=== PATIENT | male | born 1955 | race Caucasian/White ===

== ENCOUNTER → 2017-06-02 | Outpatient (CLI) | payer OTHER ==
[~2017-06-02] MED LIST: ASPI81EC PO; ATEN25 PO; TELM80 PO; VERA180ERB PO
[2017-06-03 14:39] LABS: Stool Occult Bld Immuno 1 Negative (NEGATIVE); Stool Occult Bld Immuno 2 Negative (NEGATIVE)
== END | disposition home or self-care (01) ==
LOC: OLS 07:00 → LAB SHORT 07:00
PROVIDERS: Internal Medicine
DX: Z12.5 Encounter for screening for malignant neoplasm of prostate (principal); Z12.11 Encounter for screening for malignant neoplasm of colon; E55.9 Vitamin D deficiency, unspecified; R73.9 Hyperglycemia, unspecified; I10 Essential (primary) hypertension
CPT/HCPCS: G0328

== ENCOUNTER → 2018-08-16 | Outpatient (CLI) | payer BC ==
[2018-08-17 13:22] LABS: Stool Occult Bld Immuno 1 Negative (NEGATIVE); Stool Occult Bld Immuno 2 Negative (NEGATIVE)
== END | disposition home or self-care (01) ==
LOC: LAB 07:00 → LAB SHORT 07:00
PROVIDERS: Internal Medicine
DX: Z12.5 Encounter for screening for malignant neoplasm of prostate (principal); Z12.11 Encounter for screening for malignant neoplasm of colon; E78.5 Hyperlipidemia, unspecified; E55.9 Vitamin D deficiency, unspecified; I10 Essential (primary) hypertension; Z79.899 Other long term (current) drug therapy
CPT/HCPCS: G0328

== ENCOUNTER → 2021-06-16 | Outpatient (CLI) | payer MEDICARE, BC ==
[2021-06-19 09:26] LABS: Stool Occult Bld Immuno 1 Negative (NEGATIVE); Stool Occult Bld Immuno 2 Negative (NEGATIVE)
== END | disposition home or self-care (01) ==
LOC: LAB SHORT 14:40 → LAB FUT 05-10 16:00
PROVIDERS: Internal Medicine
DX: Z12.11 Encounter for screening for malignant neoplasm of colon (principal)
CPT/HCPCS: G0328

== ENCOUNTER → 2021-12-03 | Outpatient (CLI) | payer MEDICARE, BC | END | disposition home or self-care (01) | LOC: LAB SHORT 08:44 | PROVIDERS: Internal Medicine | DX: D35.02 Benign neoplasm of left adrenal gland (principal) | CPT/HCPCS: 81050 ==

== ENCOUNTER → 2021-12-31 | Outpatient (CLI) | payer MEDICARE, BC | END | disposition home or self-care (01) | LOC: LAB SHORT 07:13 → LAB 07:13 | DX: D35.02 Benign neoplasm of left adrenal gland (principal) | CPT/HCPCS: 81050 ==

== ENCOUNTER → 2022-07-09 | Outpatient (CLI) | payer MEDICARE, BC ==
[2022-07-09 12:17] LABS: Stool Occult Bld Immuno 1 Negative (NEGATIVE); Stool Occult Bld Immuno 2 Negative (NEGATIVE)
== END | disposition home or self-care (01) ==
LOC: LAB SHORT 07:40
PROVIDERS: Internal Medicine
DX: Z12.11 Encounter for screening for malignant neoplasm of colon (principal); E11.9 Type 2 diabetes mellitus without complications; E78.5 Hyperlipidemia, unspecified; I10 Essential (primary) hypertension; Z79.899 Other long term (current) drug therapy
CPT/HCPCS: G0328

== ENCOUNTER → 2023-08-06 | Outpatient (CLI) | payer MEDICARE, BC ==
[2023-08-06 11:51] LABS: Stool Occult Bld Immuno 1 Negative (NEGATIVE); Stool Occult Bld Immuno 2 Negative (NEGATIVE)
== END | disposition home or self-care (01) ==
LOC: LAB 08:19 → LAB SHORT 08:19
PROVIDERS: Internal Medicine
DX: Z12.11 Encounter for screening for malignant neoplasm of colon (principal); E11.8 Type 2 diabetes mellitus with unspecified complications; E78.5 Hyperlipidemia, unspecified; I10 Essential (primary) hypertension; R97.20 Elevated prostate specific antigen [PSA]; Z79.899 Other long term (current) drug therapy
CPT/HCPCS: G0328

== ENCOUNTER → 2025-01-22 | Outpatient (CLI) | payer MEDICARE, BC ==
[2025-01-25 09:24] LABS: Stool Occult Blood Guaiac 1 Neg (Neg); Stool Occult Blood Guaiac 2 Neg (Neg); Stool Occult Blood Guaiac 3 Neg (Neg)
== END ==
LOC: LAB 07:00 → LAB SHORT 07:00
PROVIDERS: Internal Medicine
DX: Z12.11 Encounter for screening for malignant neoplasm of colon (principal)
CPT/HCPCS: 82270

== ENCOUNTER → 2025-02-10 | Outpatient (CLI) | payer MEDICARE, BC ==
[2025-02-10 13:16] LABS: Source, Urine Clean Catch
[2025-02-10 13:59] LABS: Bilirubin, Urine Neg (Neg); Color, Urine Yellow (P-Yellow); Glucose Qualitative, Urine Neg (Neg); Ketones, Urine Neg (Neg); Leukocyte Esterase, Urine Neg (Neg); Protein, Urine Neg (Neg); Specific Gravity, Urine 1.015 (1.003-1.022); Urobilinogen, Urine NORM (Normal)
== END | disposition home or self-care (01) ==
LOC: LAB 13:13 → LAB SHORT 13:13 → LAB FUT 10-06 12:45
PROVIDERS: Internal Medicine
DX: Z12.11 Encounter for screening for malignant neoplasm of colon (principal); R31.0 Gross hematuria
CPT/HCPCS: 81003